=== PATIENT | female | born 1995 | race Two or more races ===

== ENCOUNTER 2016-12-11 11:49 | Emergency (ER) | payer MEDICAID ==
[~2016-12-11] VITALS: Ht 170.2 cm; Wt 54.4 kg
[2016-12-11 12:03] VITALS: BP 103/62
[2016-12-11] MEDS ORDERED: HYDROCODONE/APAP 5/325MG 1 EACH TABLET ONE (12:38)
[2016-12-11] MEDS ORDERED: HYDROCODONE/APAP 5/325MG 1 EACH TABLET PO ONE (13:00)
== END 2016-12-11 12:54 | disposition home or self-care (01) ==
LOC: ER 11:54
DX: K08.89 Other specified disorders of teeth and supporting structures (principal); Z88.0 Allergy status to penicillin; F17.200 Nicotine dependence, unspecified, uncomplicated
CPT/HCPCS: 99283; A4606; Z7610

== ENCOUNTER 2019-06-08 18:08 | Emergency (ER) | payer MEDICAID, OTHER ==
[~2019-06-08] VITALS: Ht 170.2 cm; Wt 61.2 kg
[2019-06-08 18:12] VITALS: BP 110/72
== END 2019-06-08 19:40 | disposition home or self-care (01) ==
LOC: ER 18:10
DX: K04.7 Periapical abscess without sinus (principal); F17.200 Nicotine dependence, unspecified, uncomplicated; Z88.0 Allergy status to penicillin